=== PATIENT | female | born 1985 | race Caucasian/White ===

== ENCOUNTER 2016-11-04 16:18 | Outpatient (CLI) ==
[2015-06-10 14:36] VITALS: BMI 21.6
[2016-11-04 16:38] LABS: BASOPHILS % (AUTO) 0.3 % (0.0-3.0); EOSINOPHILS # (AUTO) 0.2 K/ul (0.0-0.7); EOSINOPHILS % (AUTO) 3.3 % (0.0-7.0); HEMATOCRIT 39.3 % (37.0-47.0); IMMATURE GRANULOCYTE % (AUTO) 0.3 % (0.0-5.0); LYMPHOCYTES % (AUTO) 33.5 (10.0-50.0); MEAN CORPUSCULAR HEMOGLOBIN 30.6 pg (27.0-31.0); MEAN CORPUSCULAR HGB CONC 33.1 (31.8-35.4); MEAN CORPUSCULAR VOLUME 92.5 fl (81.0-99.0); MONOCYTES # (AUTO) 0.4 K/uL (0.4-2.0); MONOCYTES % (AUTO) 6.1 (0-10); NEUTROPHILS # (AUTO) 3.4 K/ul (2.0-6.9); NEUTROPHILS % (AUTO) 56.5; PLATELET COUNT 268 10^3/uL (140-440); RED BLOOD COUNT 4.25 10^6/ul (4.20-5.40); WHITE BLOOD COUNT 6.06 K/ul (4.6-10.2)
[2016-11-04 17:15] LABS: ALBUMIN 3.5 g/dL (3.4-5.0); ALBUMIN/GLOBULIN RATIO 0.97; BILIRUBIN,TOTAL 0.2 mg/dL (0.00-1.20); BUN/CREATININE RATIO 20.73; CALCIUM 9.4 mg/dL (8.2-10.2); CHOL/HDL RATIO 3.4 (4.5-5.5); CREATININE 0.82 mg/dL (0.60-1.30); TOTAL PROTEIN 7.1 g/dL (6.4-8.2)
== END 2016-11-04 16:19 | disposition home or self-care (01) ==
LOC: LAB 16:18
PROVIDERS: ATTEND Internal Medicine
DX: E78.5 Hyperlipidemia, unspecified (principal); I10 Essential (primary) hypertension
CPT/HCPCS: 36415; 80053; 80061; 82306; 83036; 84443; 85025

== ENCOUNTER 2017-05-01 14:48 | Outpatient (CLI) ==
[2015-06-10 14:36] VITALS: BMI 21.6
[2017-05-01 15:05] LABS: BASOPHILS % (AUTO) 0.8 % (0.0-3.0); EOSINOPHILS # (AUTO) 0.1 K/ul (0.0-0.7); EOSINOPHILS % (AUTO) 2.8 % (0.0-7.0); HEMATOCRIT 37.6 % (37.0-47.0); HEMOGLOBIN 12.7 g/dl (12.0-16.0); IMMATURE GRANULOCYTE % (AUTO) 0.2 % (0.0-5.0); LYMPHOCYTES # (AUTO) 1.9 K/uL (0.60-3.4); LYMPHOCYTES % (AUTO) 39.1 (10.0-50.0); MEAN CORPUSCULAR HEMOGLOBIN 30.8 pg (27.0-31.0); MEAN CORPUSCULAR HGB CONC 33.8 (31.8-35.4); MEAN CORPUSCULAR VOLUME 91.3 fl (81.0-99.0); MONOCYTES # (AUTO) 0.5 K/uL (0.4-2.0); MONOCYTES % (AUTO) 9.9 (0-10); NEUTROPHILS # (AUTO) 2.3 K/ul (2.0-6.9); NEUTROPHILS % (AUTO) 47.2; PLATELET COUNT 263 10^3/uL (140-440); RED BLOOD COUNT 4.12 10^6/ul (4.20-5.40); WHITE BLOOD COUNT 4.93 K/ul (4.6-10.2)
[2017-05-01 15:45] LABS: ALBUMIN 3.5 g/dL (3.4-5.0); ALBUMIN/GLOBULIN RATIO 1.09; ANION GAP 11.9; BILIRUBIN,TOTAL 0.37 mg/dL (0.00-1.20); BUN/CREATININE RATIO 15.78; CALCIUM 9.1 mg/dL (8.2-10.2); CHOL/HDL RATIO 2.7 (4.5-5.5); CREATININE 0.76 mg/dL (0.60-1.30); POTASSIUM 3.9 mmol/L (3.5-5.10); TOTAL PROTEIN 6.7 g/dL (6.4-8.2)
== END 2017-05-01 14:49 | disposition home or self-care (01) ==
LOC: LAB 14:48
PROVIDERS: ATTEND Internal Medicine
DX: I10 Essential (primary) hypertension (principal); E78.5 Hyperlipidemia, unspecified; E55.9 Vitamin D deficiency, unspecified; I34.0 Nonrheumatic mitral (valve) insufficiency
CPT/HCPCS: 36415; 80053; 80061; 82607; 83036; 84443; 85025

== ENCOUNTER 2017-11-29 11:20 | Emergency (ER) ==
[2017-11-29 11:24] VITALS: BP 124/84; TEMP 98.3; BMI 25.0
--- NOTE | 2017-11-29 11:39 | ED.PDOC ---
General ED Provider: Dr. JEFF POPE Chief Complaint: Abscess Stated Complaint: Tender axillary lymph node Time Seen by Physician: 11:20 (SEEN WITH tala at all times photos attached ) Mode of Arrival: Walk-In Information Source: Patient Exam Limitations: No limitations Primary Care Provider: ELVIRA ALCALA Nursing and Triage Documentation Reviewed and Agree: Yes Reviewed sepsis parameters & appropriate labs ordered?: Yes (nurse present through out the exam) System Inflammatory Response Syndrome: Not Applicable Sepsis Protocol: For patient's 13 years and over: Temp is 96.8 and below OR 101 and greater Pulse >90 BPM Resp >20/minute Acutely Altered Mental Status Are patient's symptoms suggestive of a new infection, such as: -Pneumonia -Skin, Soft Tissue -Endocarditis -UTI -Bone, Joint Infection -Implantable Device -Acute Abdominal Infection -Wound Infection -Meningitis -Blood Stream Catheter Infection -Unknown System Inflammatory Response Syndrome: Not Applicable Musculoskeletal Complaint Exam - Upper Extremity Complaint/Exam Location of Pain: Reports: Left (axillary node x1 day) Mechanism of Injury: Reports: No known trauma Onset/Duration: 1 day Symptoms Are: Still present Timing: Constant Episodes Lasting: Hours Initial Severity: Mild Current Severity: Mild Character: Reports: Dull Aggravating: Reports: Movement Alleviating: Reports: None Related History: Reports: Similar episode Non-Orthopedic Risk Factors: Reports: None DVT Risk Factors: Reports: None Septic Arthritis Risk Factors: Reports: None Related Surgical History: Reports: None NV Bundle Intact Distal to Injury: No Review of Systems - Review Of Systems Constitutional: Reports: No symptoms Eyes: Reports: No symptoms Ears, Nose, Mouth, Throat: Reports: No symptoms Respiratory: Reports: No symptoms Cardiac: Reports: No symptoms GI: Reports: No symptoms : Reports: No symptoms Musculoskeletal: Reports: No symptoms Skin: Reports: No symptoms Neurological: Reports: No symptoms Endocrine: Reports: No symptoms Hematologic/Lymphatic: Reports: No symptoms All Other Systems: Reviewed and Negative Past Medical History - Past Medical History Previously Healthy: Yes Endocrine: Reports: None Cardiovascular: Reports: Other (ASD AND VSD repair at age 28) Respiratory: Reports: None Hematological: Reports: None Gastrointestinal: Reports: None Genitourinary: Reports: None Neuro/Psych: Reports: None Musculoskeletal: Reports: None Cancer: Reports: None Last Menstrual Period: 2 weeks ago Other Pertinent Past Medical History: OPEN HEART X 2, BREAST AUG, - Surgical History General Surgical History: Reports: Other (OPEN HEART X 2, BREAST AUG,) - Family History Family History: Reports: Unknown - Social History Smoking Status: Never smoker Hx Substance Use: No Alcohol Screening: None Physical Exam - Physical Exam Appearance: Well-appearing, No pain distress, Well-nourished Eyes: JAVIER, EOMI, Conjunctiva clear ENT: Ears normal, Nose normal, Oropharynx normal Respiratory: Airway patent, Breath sounds clear, Breath sounds equal, Respirations nonlabored Cardiovascular: RRR, Pulses normal, No rub, No murmur GI/: Soft, Nontender, No masses, Bowel sounds normal, No Organomegaly Musculoskeletal: Normal strength, ROM intact, No edema, No calf tenderness ( tender axillary node mobile 4mm in max size no overlaying skin issues . SEE PHOTOS) Skin: Warm, Dry, Normal color Neurological: Sensation intact, Motor intact, Reflexes intact, Cranial nerves intact, Alert, Oriented Psychiatric: Affect appropriate, Mood appropriate Critical Care Note - Critical Care Note Total Time (mins): 0 Course - Course Vital Signs: Temp Pulse Resp BP Pulse Ox 11/29/17 11:21 98.3 F 84 16 124/84 97 Departure - Departure Time of Disposition: 11:43 Disposition: HOME SELF-CARE Discharge Problem: Axillary lymphadenitis Instructions: Lymphadenopathy (ED), Adenitis (ED) Condition: Good Pt referred to PMD for follow-up: Yes IPMP verified?: Yes Additional Instructions: Please call your Family Physician as soon as possible to schedule a follow-up appointment. Allergies/Adverse Reactions: Allergies No Known Allergies Allergy (Verified 11/29/17 11:25) Home Medications: Ambulatory Orders Carvedilol [Coreg] 3.125 mg PO BIDWM 06/10/15 Desogestrel-Ethinyl Estradiol [Apri 28 Day Tablet] 1 tab PO DAILY 06/10/15 Disposition Discussed With: Patient
== END 2017-11-29 11:56 | disposition home or self-care (01) ==
LOC: ED 11:20
DX: L04.2 Acute lymphadenitis of upper limb (principal)
CPT/HCPCS: 99282

== ENCOUNTER 2018-01-21 10:07 | Outpatient (CLI) | END 2018-01-21 10:08 | disposition home or self-care (01) | LOC: LAB 10:07 | PROVIDERS: ATTEND Internal Medicine | DX: I10 Essential (primary) hypertension (principal); D64.9 Anemia, unspecified; Q21.0 Ventricular septal defect; Q21.1 Atrial septal defect; E53.8 Deficiency of other specified B group vitamins | CPT/HCPCS: 36415; 80053; 80061; 83036; 84443; 85025 ==

== ENCOUNTER 2018-04-23 10:11 | Outpatient (CLI) | END 2018-04-23 10:12 | disposition home or self-care (01) | LOC: LAB 10:11 | PROVIDERS: ATTEND Internal Medicine | DX: E78.5 Hyperlipidemia, unspecified (principal); D51.9 Vitamin B12 deficiency anemia, unspecified; M79.81 Nontraumatic hematoma of soft tissue | CPT/HCPCS: 36415; 80061; 82607; 85025 ==

== ENCOUNTER 2018-04-29 06:45 | Outpatient (CLI) ==
--- NOTE | 2018-04-29 09:23 | ECHO2D ---
Date of Exam: 04/29/18 Ordering Physician: DR. ELVIRA ALCALA Room #: OP Reason for Echo: VSD/ASD REPAIR M-Mode Normal Adult Results LV Dimensions Normal Adult Results AoV Opening excursions >1.6 >1.6 LVEDD-base- 3.5-5.8 4.3 Ao root dimensions 2.0-3.7 3.5 LVESD-base- 3.1-4.6 L. Atrium dimensions 1.9-3.8 4.7 Post. Wall thickness 0.8-1.1 1.1 IV septum (thickness) 0.7-1.2 1.2 Post. Wall excursion 0.72-1.3 NORMAL Septal motion NORMAL Systolic motion R. Ventricular cavity 1.5-2.0 NORMAL LVEF 60% 55% Paradoxical septal wall motion NORMAL 2-D : NORMAL LEFT VENTRICULAR CONTRACTILITY--THICKENED AM LEAFLET, ENLARGED LEFT ATRIAL CAVITY, NO THROMBUS, NO EFFUSION COLOR FLOW: MILD TO MODERATE MITRAL REGURGITATION M-MODE: MV: THICKENED AM LEAFLET AV: NORMAL TV: NORMAL PV: CHAMBER SIZE: ENLARGED LEFT ATRIAL CAVITY WALL MOTION: NORMAL PERICARDIUM: NORMAL INTERPRETATION: 1. THICKENED AML 2. MODERATE MITRAL REGURGITATION 3. NORMAL LEFT VENTRICULAR CONTRACTILITY 4. ENLARGED LEFT ATRIAL CAVITY MTDD
== END 2018-04-29 06:46 | disposition home or self-care (01) ==
LOC: CAR 06:45
PROVIDERS: ATTEND Internal Medicine
DX: Q21.0 Ventricular septal defect (principal); Q21.1 Atrial septal defect

== ENCOUNTER 2018-05-26 10:38 | Outpatient (CLI) ==
[2018-05-26 14:02] VITALS: BMI 25.1
== END 2018-05-26 10:52 | disposition critical access hospital (66) ==
LOC: AMBL 10:38
PROVIDERS: ATTEND Internal Medicine
DX: R07.9 Chest pain, unspecified (principal); R20.0 Anesthesia of skin; I10 Essential (primary) hypertension

== ENCOUNTER 2018-05-26 11:01 | Observation (INO) ==
--- NOTE | 2018-05-26 12:27 | DI ---
EXAM: CHEST FRONTAL AND LATERAL VIEWS HISTORY: Chest pain. COMPARISON: 01/09/2012 FINDINGS: Heart size and mediastinal contour remain within normal limits. Sternotomy wires are aga in noted. Lungs are mildly hyperinflated. No acute infiltrates are seen. No vascular congestion. T here is no consolidation, visible pleural fluid or pneumothorax. Bones reveal no acute fracture. IMPRESSION: No acute cardiopulmonary process.
--- NOTE | 2018-05-26 12:46 | ED.PDOC ---
General ED Provider: Dr. JEFF POPE Chief Complaint: Chest Pain Stated Complaint: chest pain Time Seen by Physician: 11:00 (seen with rn at all times chest carrie at work while at rest) Mode of Arrival: Ambulance Information Source: Patient, EMT Exam Limitations: No limitations Primary Care Provider: ELVIRA ALCALA Nursing and Triage Documentation Reviewed and Agree: Yes Does patient meet sepsis criteria?: No If yes, has appropriate treatment been initiated?: No System Inflammatory Response Syndrome: Not Applicable Sepsis Protocol: For patient's 13 years and over: Temp is 96.8 and below OR 101 and greater Pulse >90 BPM Resp >20/minute Acutely Altered Mental Status Are patient's symptoms suggestive of a new infection, such as: -Pneumonia -Skin, Soft Tissue -Endocarditis -UTI -Bone, Joint Infection -Implantable Device -Acute Abdominal Infection -Wound Infection -Meningitis -Blood Stream Catheter Infection -Unknown Cardiovascular Complaint Exam - Chest Pain Complaint/Exam Onset: Gradual Duration: today Symptoms Are: Resolved Timing: Intermittent Length of Chest Pain Episodes: 10 min Initial Severity: Mild Current Severity: None Location: Reports: Midsternal Pain Radiates: Reports: None Character: Reports: Dull Aggravating: Reports: None Alleviating: Reports: None Associated Signs and Symptoms: Reports: Cough. Denies: Diaphoresis, Nausea, Vomiting, Fever, Palpitations, Hemoptysis, Back pain, Abdominal pain, Dizziness , Short of air, Calf pain, Calf swelling Related History: Reports: Similar episode Related Surgical History: Reports: None History of Healthcare-Acquired Pneumonia: Reports: No AMI/ACS Risk Factors: Reports: None Pulmonary Embolism Risk Factors: Reports: None Prior Care for this Complaint: Yes Recent Stress Test: No Recent Echo/LV Function: No JVD Present: No Subcutaneous Emphysema Present: No Diminshed Breath Sounds: No Reproducible Chest Wall Pain: No Bilateral Pulses Present: Yes Unequal Pulses Noted: No If Risk Factors for AMI/ACS Consider: EKG, Cardiac Enzymes Differential Diagnoses: Stable Angina, Lower Resp. Infection Review of Systems - Review Of Systems Constitutional: Reports: No symptoms Eyes: Reports: No symptoms Ears, Nose, Mouth, Throat: Reports: No symptoms Respiratory: Reports: Cough Cardiac: Reports: Chest pain GI: Reports: No symptoms : Reports: No symptoms Musculoskeletal: Reports: No symptoms Skin: Reports: No symptoms Neurological: Reports: No symptoms Endocrine: Reports: No symptoms Hematologic/Lymphatic: Reports: No symptoms All Other Systems: Reviewed and Negative Past Medical History - Past Medical History Previously Healthy: Yes Endocrine: Reports: None Cardiovascular: Reports: Other (ASD AND VSD repair at age 28) Respiratory: Reports: None Hematological: Reports: None Gastrointestinal: Reports: None Genitourinary: Reports: None Neuro/Psych: Reports: None Musculoskeletal: Reports: None Cancer: Reports: None Last Menstrual Period: last week Other Pertinent Past Medical History: OPEN HEART X 2, BREAST AUG, - Surgical History General Surgical History: Reports: Other (OPEN HEART X 2, BREAST AUG,) - Family History Family History: Reports: Unknown - Social History Smoking Status: Never smoker Hx Substance Use: No Alcohol Screening: None Physical Exam - Physical Exam Appearance: Well-appearing, No pain distress, Well-nourished Eyes: JAVIER, EOMI, Conjunctiva clear ENT: Ears normal, Nose normal, Oropharynx normal Respiratory: Airway patent, Breath sounds clear, Breath sounds equal, Respirations nonlabored Cardiovascular: RRR, Pulses normal, No rub, No murmur GI/: Soft, Nontender, No masses, Bowel sounds normal, No Organomegaly Musculoskeletal: Normal strength, ROM intact, No edema, No calf tenderness Skin: Warm, Dry, Normal color Neurological: Sensation intact, Motor intact, Reflexes intact, Cranial nerves intact, Alert, Oriented Psychiatric: Affect appropriate, Mood appropriate Interpretation - Radiology Interpretation Radiology Interpretation By: Radiologist Radiology Results: No acute changes Physician Notification - Case Discussed Physician Notified: pmd Time of Notification: 12:46 Admit To: Inpatient Critical Care Note - Critical Care Note Total Time (mins): 0 Course - Course Hematology/Chemistry: 05/26/18 11:30 05/26/18 11:30 Orders, Labs, Meds: Lab Review 05/26/18 05/26/18 05/26/18 11:30 11:30 11:30 WBC 7.07 RBC 4.26 Hgb 13.1 Hct 39.1 MCV 91.8 MCH 30.8 MCHC 33.5 RDW Coeff of Perla 12.2 Plt Count 248 Immature Gran % (Auto) 0.3 Neut % (Auto) 61.8 Lymph % (Auto) 29.4 Mcpherson % (Auto) 6.5 Eos % (Auto) 1.4 Baso % (Auto) 0.6 Immature Gran # (Auto) 0.0 Neut # (Auto) 4.4 Lymph # (Auto) 2.1 Mcpherson # (Auto) 0.5 Eos # (Auto) 0.1 Baso # (Auto) 0.0 PT 9.5 INR 0.95 APTT 25.4 Sodium 138 Potassium 4.4 Chloride 107 Carbon Dioxide 24 Anion Gap 11.4 BUN 10 Creatinine 0.69 Estimated GFR (MDRD) 97.00 BUN/Creatinine Ratio 14.49 Glucose 90 Calcium 8.9 Total Bilirubin 0.6 AST 12 L ALT 10 L Alkaline Phosphatase 54 Total Creatine Kinase 41 Troponin I < 0.0100 Total Protein 6.8 Albumin 3.4 Globulin 3.4 Albumin/Globulin Ratio 1.00 Serum , Qual 05/26/18 11:35 WBC RBC Hgb Hct MCV MCH MCHC RDW Coeff of Perla Plt Count Immature Gran % (Auto) Neut % (Auto) Lymph % (Auto) Mcpherson % (Auto) Eos % (Auto) Baso % (Auto) Immature Gran # (Auto) Neut # (Auto) Lymph # (Auto) Mcpherson # (Auto) Eos # (Auto) Baso # (Auto) PT INR APTT Sodium Potassium Chloride Carbon Dioxide Anion Gap BUN Creatinine Estimated GFR (MDRD) BUN/Creatinine Ratio Glucose Calcium Total Bilirubin AST ALT Alkaline Phosphatase Total Creatine Kinase Troponin I Total Protein Albumin Globulin Albumin/Globulin Ratio Serum , Qual Negative Orders Category Date Time Status EKG-(ED ONLY) Stat CARDIO 05/26/18 11:24 Completed CBC W/ AUTO DIFF Stat LAB 05/26/18 11:30 Completed COMPREHENSIVE METABOLIC PANEL Stat LAB 05/26/18 11:30 Completed CREATINE KINASE Stat LAB 05/26/18 11:30 Completed PARTIAL THROMBOPLASTIN TIME Stat LAB 05/26/18 11:30 Completed PT WITH INR Stat LAB 05/26/18 11:30 Completed SERUM Stat LAB 05/26/18 11:35 Completed TROPONIN I Stat LAB 05/26/18 11:30 Completed CHEST, 2 VIEWS PA & LAT Stat RADS 05/26/18 11:24 Completed Vital Signs: Temp Pulse Resp BP Pulse Ox 05/26/18 11:02 98.6 F 69 18 131/78 100 IMELDA Risk Score IMELDA Risk Score: Risk Score Odds of by 30D 0 0.1 (0.1-0.2) 1 0.3 (0.2-0.3) 2 0.4 (0.3-0.5) 3 0.7 (0.6-0.9) 4 1.2 (1.0-1.5) 5 2.2 (1.9-2.6) 6 3.0 (2.5-3.6) 7 4.8 (3.8-6.1) Departure - Departure Time of Disposition: 12:46 Disposition: ADMITTED INPATIENT Discharge Problem: Chest pain Instructions: Angina (ED) Condition: Good Pt referred to PMD for follow-up: Yes IPMP verified?: No Additional Instructions: Please call your Family Physician as soon as possible to schedule a follow-up appointment. Allergies/Adverse Reactions: Allergies No Known Allergies Allergy (Verified 05/26/18 11:09) Home Medications: Ambulatory Orders Carvedilol [Coreg] 3.125 mg PO BIDWM 06/10/15 Desogestrel-Ethinyl Estradiol [Apri 28 Day Tablet] 1 tab PO DAILY 06/10/15 Disposition Discussed With: Patient
[2018-05-26] MEDS: SODIUM CHLORIDE 1,000 ML IV SCH ×2 (13:24→20:27)
[2018-05-26 14:02] VITALS: BMI 25.1
[2018-05-26] MEDS ORDERED: DECADRON 4 MG/ML SDV IM STA (14:25)
[2018-05-26] MEDS: TORADOL IVP SCH ×2 (15:00→20:25)
[2018-05-26] MEDS ORDERED: COREG PO SCH ×2 (17:30)
[2018-05-27] MEDS: TORADOL IVP SCH (05:12)
--- NOTE | 2018-05-27 08:50 | PN ---
DATE OF SERVICE: 05/26/18 SUBJECTIVE: 34-year-old white female hospitalized with chest pain. Chest pain was fairly atypical, inframammary on anterior axillary line, localized, lasting for 15 to 20 minutes. The patient was at work. She was brought to the emergency room. EKG shows sinus rhythm, LVH changes. Cardiac markers are negative. The patient has history of AST, VSD repair, has done well. The patient has done well. The patient had recent echocardiogram which was practically unremarkable except for mildly hypokinetic septum. The patient will under stress echo in the morning. She will be monitored. She will have serial cardiac markers, telemetry. The patient had pain which has subsequently subsided. The patient will be given Toradol p.r.n. as needed for pain. CONDITION: Stable. TIME SPENT: More than 30 minutes. Plan and coordination of the patient's care discussed in the presence of nurse. KIRILL
[2018-05-27] MEDS ORDERED: DESOGESTREL ETHINYL ESTRADIOL PO SCH (09:00)
[2018-05-27] MEDS: SODIUM CHLORIDE 1,000 ML IV SCH (09:17)
[2018-05-27 09:44] VITALS: BP 113/74; TEMP 97.8
--- NOTE | 2018-05-28 10:03 | STRESSECHO ---
Date of Test: 05/27/18 Ordering Physician: DR. 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[employer] Reason for Exam: CHEST PAIN, H/O ASD REPAIR Height: 66" Weight: 155 LBS Current Medications: CARVEDILOL Resting EKG: ATRIAL RHYTHM Target Heart Rate: 158 S-T SEGMENT STAGE MPH/GRADE HEART RATE BPM BLOOD PRESSURE MMHG RHYTHM +/- ELEVATION DEPRESSION SYMPTOMS,COMMENTS AT REST 70 112/78 SR X NONE 1 1.7/10% 110 122/76 SR X NONE 2 2.5/12% 128 128/70 SR X NONE 3 3.4/14% 4 4.2/16% 5 5.0/18% Immediately After 150 SR X FATIGUE Minutes Post Exercise 5:00 86 112/70 SR X FATIGUE Minutes Post Exercise DURATION OF EXERCISE: 8:01 MAXIMUM HEART RATE REACHED: 150 BPM REASON FOR TERMINATION: FATIGUE 97% OXYGEN SATURATION WITH EXERCISE ON ROOM AIR INTERPRETATION: 1. NO EVIDENCE OF ISCHEMIA BY ST-T WAVE 2. NO CHEST PAIN OR CHEST DISCOMFORT 3. BLOOD PRESSURE RESPONSE: NORMAL AT REST AND WITH EXERCISE 4. NO ARRHYTHMIAS MILDLY HYPOKINETIC SEPTUM AT REST AND NORMAL LEFT VENTRICULAR CONTRACTILITY WITH EXERCISE MTDD
--- NOTE | 2018-05-28 10:20 | ECHOSTRESS ---
Date of Exam: 05/27/18 Ordering Physician: DR. ELVIRA ALCALA Reason for Echo: CHEST PAIN, H/O ASD REPAIR M-Mode Normal Adult Results LV Dimensions Normal Adult Results AoV Opening excursions >1.6 LVEDD-base- 3.5-5.8 Ao root dimensions 2.0-3.7 LVESD-base- 3.1-4.6 L. Atrium dimensions 1.9-3.8 Post. Wall thickness 0.8-1.1 IV septum (thickness) 0.7-1.2 Post. Wall excursion 0.72-1.3 Septal motion Systolic motion R. Ventricular cavity 1.5-2.0 LVEF 60% Paradoxical septal wall motion 2-D: MILDLY HYPOKINETIC SEPTUM AT REST--POST EXERCISE NORMAL LEFT VENTRICULAR CONTRACTILITY M-MODE: MV: AV: TV: PV: CHAMBER SIZE: WALL MOTION: MILDLY HYPOKINETIC SEPTUM AT REST--POST EXERCISE NORMAL LEFT VENTRICULAR CONTRACTILITY PERICARDIUM: INTERPRETATION: 1. MILDLY HYPOKINETIC SEPTUM AT REST--POST EXERCISE NORMAL LEFT VENTRICULAR CONTRACTILITY MTDD
--- NOTE | 2018-05-28 13:08 | PN ---
DATE OF SERVICE: 05/27/18 SUBJECTIVE: This 33-year-old white female was hospitalized with chest pain. REVIEW OF SYSTEMS: CONSTITUTIONAL: No night sweats. No fatigue, malaise, lethargy. No fever or chills. HEENT: Eyes: No visual changes. No eye pain. No eye discharge. ENT: No runny nose. No epistaxis. No sinus pain. No sore throat. No odynophagia. No congestion. RESPIRATORY: No cough, no congestion. No hemoptysis. No shortness of breath. CARDIOVASCULAR: No angina symptoms. No CHF symptoms. No atypical chest pain for CAD. No palpitations. No orthopnea. GASTROINTESTINAL: No abdominal pain. No nausea or vomiting. No diarrhea or constipation. No hematemesis. No hematochezia. GENITOURINARY: No urgency. No frequency. No dysuria. No hematuria. No obstructive symptoms. No discharge. No pain. No significant abnormal bleeding. MUSCULOSKELETAL: No musculoskeletal pain; no joint swelling. NEUROLOGICAL: No headache. No neck pain. No syncope. No seizures. No dizziness. PSYCHIATRIC: Not anxious. No depression. No suicidal thoughts. No homicidal thoughts. SKIN: No rash. No lesions. No wounds. ENDOCRINE: No unexplained weight loss. No weight gain. HEMATOLOGIC/LYMPHATIC: No anemia. No purpura. No petechiae. No prolonged or excessive bleeding. No palpable lymph nodes. PHYSICAL EXAMINATION: HEENT: Head normocephalic, atraumatic. Eyes: Extraocular muscles are intact. Pupils are equal, round and reactive to light and accommodation. Ears: No lesions. Nose appeared normal. Throat: No exudate or erythema. NECK: Supple. No JVD, no carotid bruit. No lymphadenopathy or thyromegaly. LUNGS: Clear to auscultation. Percussion note normal. Chest symmetrical. HEART: S1, S2, no S3. No murmurs. No cyanosis or clubbing. No ascites. Pulses: Dorsalis pedis and posterior tibial pulses +1 to +2 both sides. ABDOMEN: Soft. Nontender. Bowel sounds active. No CVA tenderness. No mass felt. EXTREMITIES: No edema. Full range of motion of all extremities, equal. NEUROLOGIC: No focal deficit. Cranial nerves II through XII are grossly intact. No headache, no double vision or headache. SKIN: Not dry. Intact. Turgor - normal. LYMPHATIC: No palpable lymph nodes/no lymphedema. MUSCULOSKELETAL: Normal joints with no swelling. Muscle tone is normal. LABS: Hemoglobin 12, hematocrit 35, WBC 5,800, normal differential. Creatinine 0.6, BUN 11. Cardiac markers negative. The patient was seen and examined with nurse practitioner. Will do stress echo, if normal will discharge her home. The patient's EKG shows LVH, sinus rhythm, no ST-T wave changes. CONDITION: Stable. The patient was seen and examined with the nurse practitioner. TIME SPENT: More than 30 minutes. Plan and coordination of the patient's care discussed in the presence of nurse. KIRILL
--- NOTE | 2018-05-28 13:09 | PN ---
CODING FOR BILLING 05/26/18 LEVEL 5 05/27/18 DISCHARGE MTDD
--- NOTE | 2018-05-28 15:36 | HP ---
DATE OF SERVICE: 05/26/18 REASON FOR HOSPITALIZATION/HISTORY OF PRESENT ILLNESS: 33 year old female with a history of ASD repair who started having chest pain under the left breast radiating down the left arm at work yesterday while at rest. She stated that she did break out in a sweat but did not necessarily feel short of breath. PAST MEDICAL HISTORY: Hypertension Dyslipidemia, she refuses a Statin Mitral regurg History of ASD VSD status post repair Vitamin D deficiency Anemia B12 deficiency PAST SURGICAL HISTORY: VSD/ACD repair in 2010 in [place] REVIEW OF SYSTEMS: CONSTITUTIONAL: No night sweats. Fatigue. No fever or chills. HEENT: Eyes: No visual changes. No eye pain. No eye discharge. ENT: No runny nose. No epistaxis. No sinus pain. No sore throat. No odynophagia. No ear pain. No congestion. RESPIRATORY: No cough, no congestion. No hemoptysis. No shortness of breath. CARDIOVASCULAR: No angina symptoms. No CHF symptoms. No atypical chest pain for CAD. No palpitations. No PND. No orthopnea. Chest pain. GASTROINTESTINAL: No abdominal pain. No nausea or vomiting. No diarrhea or constipation. No hematemesis. No hematochezia. GENITOURINARY: No urgency. No frequency. No dysuria. No hematuria. No obstructive symptoms. No discharge. No pain. No significant abnormal bleeding. MUSCULOSKELETAL: No musculoskeletal pain. No joint swelling. No arthritis. NEUROLOGICAL: No headache. No neck pain. No syncope. No seizures. No dizziness. PSYCHIATRIC: Not anxious. No depression. No suicidal thoughts. No homicidal thoughts. SKIN: No rash. No lesions. No wounds. ENDOCRINE: No unexplained weight loss. No weight gain. HEMATOLOGIC/LYMPHATIC: No anemia. No purpura. No petechiae. No prolonged or excessive bleeding. No palpable lymph nodes. PERSONAL/FAMILY/SOCIAL HISTORY: None unknown. The patient lives with her . She is a nonsmoker, no alcohol or illicit drug use. MEDICATIONS: Coreg 3.125mg PO daily Apri 28 day tablet one tablet PO daily ALLERGIES: No known allergies PHYSICAL EXAMINATION: VITAL SIGNS: Temperature 98.6, heart rate 69, respiratory rate 18, blood pressure 131/78 and pulse ox 100%. HEENT: Head normocephalic, atraumatic. Eyes: Extraocular muscles are intact. Pupils are equal, round and reactive to light and accommodation. Ears: No lesions. Nose appeared normal. Throat: No exudate or erythema. NECK: Supple. No JVD, no carotid bruit. No lymphadenopathy or thyromegaly. LUNGS: Clear to auscultation. Percussion note normal. Chest symmetrical. HEART: S1, S2, no S3. No murmurs. No cyanosis or clubbing. No ascites. Pulses: Dorsalis pedis and posterior tibial pulses +1 to +2 bilaterally. ABDOMEN: Soft. Nontender. Bowel sounds active. No CVA tenderness. No mass felt. EXTREMITIES: No edema. Full range of motion of all extremities, equal. NEUROLOGIC: No focal deficit. Cranial nerves II through XII are grossly intact. No headache, no double vision or headache. SKIN: Not dry. Intact. Turgor - normal. LYMPHATIC: No palpable lymph nodes/no lymphedema. MUSCULOSKELETAL: Normal joints with no swelling. Muscle tone is normal. LABS: WBC 7.07, hgb 13.1, hct 39.1, plt count 248, sodium 138, potassium 4.4, BUN 10, creatinine 0.69, Glucose 90. PT 9.5, INR 0.95, Troponin less than 0.01, total protein 6.8. Chest x-ray was normal. Cholesterol was 214, Triglyceride 82, LDL 139, HDL 59, T4 0.89, TSH 0.352 ASSESSMENT: 1. Chest pain, very likely atypical 2. History of ASD/VSD status post repair 3. Dyslipidemia, refuses treatment 4. History of hypertension PLAN: 1. Will admit 2. Routine telemetry orders 3. CBC and CMP daily 4. Echo with stress echo in the morning 5. Continue all home medications 6. Toradol 30mg IV Q 8 hours as scheduled 7. Regular diet 8. The patient is a full code Will follow closely. TIME SPENT: More than 70 minutes. MTDD
--- NOTE | 2018-05-31 10:16 | PN ---
DATE OF SERVICE: 05/27/18 SUBJECTIVE: The patient is examined. She states she is not experiencing any chest pain at the moment. She is scheduled for stress echo with Dr. Leos today. She is not short of breath. All of her enzymes have been normal. REVIEW OF SYSTEMS: CONSTITUTIONAL: No night sweats. No fatigue, malaise, lethargy. No fever or chills. HEENT: Eyes: No visual changes. No eye pain. No eye discharge. ENT: No runny nose. No epistaxis. No sinus pain. No sore throat. No odynophagia. No congestion. RESPIRATORY: No cough, no congestion. No hemoptysis. No shortness of breath. CARDIOVASCULAR: No angina symptoms. No CHF symptoms. No atypical chest pain for CAD. No palpitations. No orthopnea. GASTROINTESTINAL: No abdominal pain. No nausea or vomiting. No diarrhea or constipation. No hematemesis. No hematochezia. GENITOURINARY: No urgency. No frequency. No dysuria. No hematuria. No obstructive symptoms. No discharge. No pain. No significant abnormal bleeding. MUSCULOSKELETAL: No musculoskeletal pain; no joint swelling. NEUROLOGICAL: No headache. No neck pain. No syncope. No seizures. No dizziness. PSYCHIATRIC: Not anxious. No depression. No suicidal thoughts. No homicidal thoughts. SKIN: No rash. No lesions. No wounds. ENDOCRINE: No unexplained weight loss. No weight gain. HEMATOLOGIC/LYMPHATIC: No anemia. No purpura. No petechiae. No prolonged or excessive bleeding. No palpable lymph nodes. PHYSICAL EXAMINATION: HEENT: Head normocephalic, atraumatic. Eyes: Extraocular muscles are intact. Pupils are equal, round and reactive to light and accommodation. Ears: No lesions. Nose appeared normal. Throat: No exudate or erythema. NECK: Supple. No JVD, no carotid bruit. No lymphadenopathy or thyromegaly. LUNGS: Clear to auscultation. Percussion note normal. Chest symmetrical. HEART: S1, S2, no S3. Grade II/ systolic murmur. No cyanosis or clubbing. No ascites. Pulses: Dorsalis pedis and posterior tibial pulses +1 to +2 both sides. ABDOMEN: Soft. Nontender. Bowel sounds active. No CVA tenderness. No mass felt. EXTREMITIES: No edema. Full range of motion of all extremities, equal. NEUROLOGIC: No focal deficit. Cranial nerves II through XII are grossly intact. No headache, no double vision or headache. SKIN: Not dry. Intact. Turgor - normal. LYMPHATIC: No palpable lymph nodes/no lymphedema. MUSCULOSKELETAL: Normal joints with no swelling. Muscle tone is normal. LABS: Normal. ASSESSMENT: 1. CHEST PAIN, LIKELY ATYPICAL 2. HISTORY OF ASD/VSD REPAIR ABOUT 5 YEARS AGO IN [facility] 3. DYSLIPIDEMIA, PATIENT REFUSES TREATMENT PLAN: 1. Will do T4, TSH and lipids today. 2. The patient is to have echo and stress echo with Dr. Leos. 3. Continue all home medications. TIME SPENT: More than 30 minutes. Plan and coordination of the patient's care discussed in the presence of nurse. KIRILL
--- NOTE | 2018-07-19 11:04 | DS ---
DATE OF SERVICE: 05/27/18 FINAL DIAGNOSIS: 1. CHEST PAIN, ATYPICAL 2. HISTORY OF ASD/VSD, STATUS POST REPAIR IN 2010, IN [place] 3. DYSLIPIDEMIA FOR WHICH PATIENT REFUSES TREATMENT 4. HISTORY OF HYPERTENSION DISCHARGE INSTRUCTIONS: Followup appointment - to see Dr. Leos/Sierra Poon APRN on 06/01/18 at 9:45 a.m. MEDICATIONS AT DISCHARGE: Carvedilol (Coreg) 3.125 mg p.o. daily with meal Estradiol one tab p.o. daily NEW PRESCRIPTIONS: None DIET INSTRUCTIONS: Heart Healthy ACTIVITY: Get plenty of rest at home. Increase your activity level according to your toleration. SMOKING: N/A DISEASE SPECIFIC EDUCATION: Medications Activity Diet and exercise Stress management techniques Follow up HOSPITAL COURSE: This is a 33-year-old white female who presented to the emergency room after having a weak spell at work. While at rest she was experiencing chest pain under her left breast radiating down her left arm. Due to her cardiac history she became nervous. She did break out in a sweat but was not short of breath, just felt very weak. She was subsequently admitted under observation. She underwent an echo and stress echo by Dr. Leos, which showed no evidence of ischemia by ST-T wave. She experienced no chest pain or chest discomfort. All of her cardiac enzymes were negative. Chest x-ray was normal. UA was normal. Her echo did reveal a mildly hypokinetic septum at rest, normal left ventricular contractility with exercise. Her blood pressure remained normal. She did not experience any chest pain or weakness while in the hospital. We discussed this is likely atypical chest pain for which she is having some increased anxiety with stress at work however she does have a history of dyslipidemia and she has been strongly recommended to begin statin therapy although she continues to refuse. She was given Protonix 40 mg p.o. b.i.d. while in the hospital and she has declined any depression or antianxiety medication at this time. She will be discharged home in stable condition and allowed to return to work due to her negative cardiac workup. She will follow up with us in the office next week. Stress management techniques have been discussed with her in detail. TIME SPENT: More than 60 minutes. KIRILL
== END 2018-05-27 12:31 | disposition home or self-care (01) ==
LOC: ED 11:01 → MEDSURG B 13:09 → INTOOBSV 13:09
PROVIDERS: ADMIT Internal Medicine; ATTEND Internal Medicine
DX: E78.5 Hyperlipidemia, unspecified (principal); I10 Essential (primary) hypertension
CPT/HCPCS: 36415; 80053; 80061; 82550; 84439; 84443; 84484; 84703; 85025; 85610; 85730; 93005; 93010; 99284

== ENCOUNTER 2018-08-18 11:28 | Outpatient (POV) | END 2018-08-18 17:00 | LOC: OUTPT 11:28 | PROVIDERS: ATTEND Otolaryngology | DX: H69.80 Other specified disorders of Eustachian tube, unspecified ear (principal) | CPT/HCPCS: 92557; 92567 ==

== ENCOUNTER 2018-09-01 10:03 | Outpatient (CLI) | END 2018-09-01 10:04 | disposition home or self-care (01) | LOC: LAB 10:03 | PROVIDERS: ATTEND Internal Medicine | DX: E78.5 Hyperlipidemia, unspecified (principal); I10 Essential (primary) hypertension | CPT/HCPCS: 36415; 80053; 80061; 83036; 84439; 84443; 85025 ==

== ENCOUNTER 2018-11-25 15:40 | Emergency (ER) ==
[2018-11-25 15:44] VITALS: BP 144/87; TEMP 98.2; BMI 26.6
--- NOTE | 2018-11-25 16:45 | ED.PDOC ---
General ED Provider: Dr. QUENTIN JERONIMO Chief Complaint: Knee Pain/Injury Stated Complaint: patient states that she was standing at school for approx one hour and then she heard a pop. states she didn't think much about it until she went to walk. states her right knee wouldn't "work right." states having problems bending it. states she is afraid to put weight on it but it doesn't hurt with weight. states pain worsened around 1515. Time Seen by Physician: 15:50 Mode of Arrival: Wheelchair Information Source: Patient Exam Limitations: No limitations Primary Care Provider: ELVIRA ALCALA Nursing and Triage Documentation Reviewed and Agree: Yes Does patient meet sepsis criteria?: No System Inflammatory Response Syndrome: Not Applicable Sepsis Protocol: For patient's 13 years and over: Temp is 96.8 and below OR 101 and greater Pulse >90 BPM Resp >20/minute Acutely Altered Mental Status Are patient's symptoms suggestive of a new infection, such as: -Pneumonia -Skin, Soft Tissue -Endocarditis -UTI -Bone, Joint Infection -Implantable Device -Acute Abdominal Infection -Wound Infection -Meningitis -Blood Stream Catheter Infection -Unknown Musculoskeletal Complaint Exam - Knee Pain Complaint/Exam Mechanism of Injury: Reports: No known trauma Onset/Duration: earlier today Symptoms Are: Still present Onset of Pain: Reports: Immediate Initial Severity: Moderate Current Severity: Mild Location: Reports: Discrete Character: Reports: Aching, Stiffness Alleviating: Reports: Rest, Position Aggravating: Reports: Movement Associated Signs and Symptoms: Reports: Swelling, Redness Able to Bear Weight: Yes Septic Arthritis Risk Factors: Reports: None Gout Risk Factors: Reports: None Related Surgical History: Denies: Right Knee, Left Knee Knee Findings: Present: Swelling, Limited range of motion. Absent: Ecchymosis, Laceration, Erythema, Warmth Tenderness: Present: Pre-patellar, Joint Marilynn Test Positive: No Helena Test Positive: No Limited Range of Motion: Present: Passive Differential Diagnoses: Patellofemoral Syndrome, Strain Review of Systems - Review Of Systems Constitutional: Reports: No symptoms Eyes: Reports: No symptoms Ears, Nose, Mouth, Throat: Reports: No symptoms Respiratory: Reports: No symptoms Cardiac: Reports: No symptoms GI: Reports: No symptoms : Reports: No symptoms Musculoskeletal: Reports: No symptoms, Joint pain Skin: Reports: No symptoms Neurological: Reports: No symptoms Endocrine: Reports: No symptoms Hematologic/Lymphatic: Reports: No symptoms All Other Systems: Reviewed and Negative Past Medical History - Past Medical History Previously Healthy: Yes Endocrine: Reports: None Cardiovascular: Reports: Other (ASD AND VSD repair at age 28) Respiratory: Reports: None Hematological: Reports: None Gastrointestinal: Reports: None Genitourinary: Reports: None Neuro/Psych: Reports: None Musculoskeletal: Reports: None Cancer: Reports: None Last Menstrual Period: 2 weeks ago Other Pertinent Past Medical History: OPEN HEART X 2, BREAST AUG, - Surgical History General Surgical History: Reports: Other (OPEN HEART X 2, BREAST AUG,) - Family History Family History: Reports: Unknown - Social History Smoking Status: Former smoker Hx Substance Use: No Alcohol Screening: None Physical Exam - Physical Exam Appearance: Well-appearing, No pain distress, Well-nourished Ill-appearing: None Pain Distress: Mild Eyes: JAVIER, EOMI, Conjunctiva clear ENT: Ears normal, Nose normal, Oropharynx normal Respiratory: Airway patent, Breath sounds clear, Breath sounds equal, Respirations nonlabored Cardiovascular: RRR, Pulses normal, No rub, No murmur GI/: Soft, Nontender, No masses, Bowel sounds normal, No Organomegaly Musculoskeletal: Normal strength, ROM intact (See knee exam), No edema, No calf tenderness Skin: Warm, Dry, Normal color Neurological: Sensation intact, Motor intact, Reflexes intact, Cranial nerves intact, Alert, Oriented Psychiatric: Affect appropriate, Mood appropriate Critical Care Note - Critical Care Note Total Time (mins): 0 Course - Course Orders, Labs, Meds: Orders Category Date Time Status ED CRUTCHES .ONCE EMERGENCY 11/25/18 18:29 Active Knee immobilizer [ED SPLINT APPLICATION] .ONCE EMERGENCY 11/25/18 18:29 Active Ketorolac Tromethamine [Toradol] MEDS 11/25/18 17:39 Discontinued 30 mg IM ONCE STA KNEE, RIGHT 4 VIEWS Stat RADS 11/25/18 16:44 Completed Medications Discontinued Medications Generic Name Dose Route Start Last Admin Trade Name Freq PRN Reason Stop Dose Admin Ketorolac Tromethamine 30 mg 11/25/18 17:39 11/25/18 18:01 Toradol IM 11/25/18 17:40 30 mg ONCE STA Administration Vital Signs: Temp Pulse Resp BP Pulse Ox 11/25/18 15:40 98.2 F 82 20 144/87 H 99 Departure - Departure Time of Disposition: 18:20 Disposition: HOME SELF-CARE Discharge Problem: Strain of right knee Instructions: Knee Pain (ED) Condition: Good Pt referred to PMD for follow-up: Yes (1-2 weeks) IPMP verified?: No Additional Instructions: ICE Elevate Ibuprofen 200mg take 3 tabs every 6 hrs for pain as needed if unable to obtain toradol-do not take both of them Crutches Knee Immobilizer Follow up Dr Alcala for ortho referral Prescriptions: Ketorolac Tromethamine [Toradol] 10 mg PO Q6H PRN #20 tablet PRN Reason: knee pain Allergies/Adverse Reactions: Allergies No Known Allergies Allergy (Verified 11/25/18 15:44) Home Medications: Ambulatory Orders Carvedilol 3.125 mg PO DAILY 11/25/18 Desogestrel-Ethinyl Estradiol [Rahul 28 Day Tablet] 1 each PO DAILY 11/25/18 Ketorolac Tromethamine [Toradol] 10 mg PO Q6H PRN #20 tablet 11/25/18 Disposition Discussed With: Patient
[2018-11-25] MEDS ORDERED: TORADOL IM STA (17:39)
--- NOTE | 2018-11-26 07:14 | DI ---
EXAM: RIGHT KNEE. HISTORY: Medial knee pain. FINDINGS: Right knee four view. Articular cartilage width is normal. There is no fracture or joint effusion. Bone density and soft tissues are within normal limits. IMPRESSION: Within normal limits.
== END 2018-11-25 18:39 | disposition home or self-care (01) ==
LOC: ED 15:40
DX: S86.911A Strain of unspecified muscle(s) and tendon(s) at lower leg level, right leg, initial encounter (principal); X50.1XXA Overexertion from prolonged static or awkward postures, initial encounter
CPT/HCPCS: 96372; 99282

== ENCOUNTER 2018-12-02 14:12 | Outpatient (CLI) | END 2018-12-02 14:13 | disposition home or self-care (01) | LOC: LAB 14:12 | PROVIDERS: ATTEND Internal Medicine | DX: E78.5 Hyperlipidemia, unspecified (principal); D64.9 Anemia, unspecified; E53.8 Deficiency of other specified B group vitamins; I10 Essential (primary) hypertension | CPT/HCPCS: 36415; 80053; 80061; 82306; 82607; 84439; 84443; 85025 ==

== ENCOUNTER 2019-04-30 17:10 | Emergency (ER) ==
[2019-04-30 17:14] VITALS: BP 124/83; TEMP 98.1; BMI 25.6
[2019-04-30 17:43] LABS: URINE PREGNANCY TEST NEGATIVE (NEGATIVE)
[2019-04-30] MEDS: NORFLEX IM STA (17:45)
[2019-04-30] MEDS: TORADOL IM STA (17:47)
--- NOTE | 2019-04-30 18:21 | CT ---
EXAM: CT cervical spine. HISTORY: Neck pain. No acute injury. COMPARISON: None. TECHNIQUE: Contiguous axial images at 2 mm intervals were obtained from the base of the skull to the thoracic spine. Sagittal and coronal reformats were reviewed. No contrast was given. FINDINGS: There is straightening of the normal lordosis which may be due to positioning the CT gantr y. The vertebral heights are well maintained. There are no acute or healing fractures. There are no lytic or blastic lesions. No significant degenerative changes are seen. No disc bulges are identif ied. The soft tissues are normal. The airway is widely patent. Limited views of the lung apices are normal. There are no disc bulges, spinal canal or neural foramen narrowing IMPRESSION: No acute cervical spine abnormality.
--- NOTE | 2019-04-30 18:24 | ED.PDOC ---
General ED Provider: Dr. QUENTIN MENDEZ-ER Chief Complaint: Neck Pain Non-Injury Stated Complaint: i turned my head and my neck popped Time Seen by Physician: 17:30 Mode of Arrival: Walk-In Information Source: Patient Exam Limitations: No limitations Primary Care Provider: ELVIRA ALCALA Nursing and Triage Documentation Reviewed and Agree: Yes Does patient meet sepsis criteria?: No System Inflammatory Response Syndrome: Not Applicable Sepsis Protocol: For patient's 13 years and over: Temp is 96.8 and below OR 101 and greater Pulse >90 BPM Resp >20/minute Acutely Altered Mental Status Are patient's symptoms suggestive of a new infection, such as: -Pneumonia -Skin, Soft Tissue -Endocarditis -UTI -Bone, Joint Infection -Implantable Device -Acute Abdominal Infection -Wound Infection -Meningitis -Blood Stream Catheter Infection -Unknown Musculoskeletal Complaint Exam - Neck Pain Complaint/Exam Mechanism of Injury: Reports: No known trauma Onset/Duration: 1 hr Symptoms Are: Still present Timing: Constant Initial Severity: Mild Current Severity: Mild Location: Reports: Discrete Character: Reports: Dull, Aching, Spasmodic Aggravating: Reports: Movement Alleviating: Reports: Position Associated Signs and Symptoms: Denies: Swelling, Redness, Bruising, Fever, Nuchal rigidity, Weakness, Headache, Paresthesia Meningitis Risk Factors: Reports: None Cervical Spine Injury Risk Factors: Reports: None Related Surgical History: Reports: None Carotid Bruit Present: No Pain on Passive Flexion: Yes Positive Kernig's Sign: No ROM Limited In: Present: Flexion, Extension, Right, Left Pain Located at: posterior neck Tenderness: Present: Midline Focal Weakness: Present: None Focal Sensory Loss: Reports: None Nexus Low Risk Criteria: No post-midline CS tender Differential Diagnoses: Sprain, Strain Review of Systems - Review Of Systems Constitutional: Reports: No symptoms Eyes: Reports: No symptoms Ears, Nose, Mouth, Throat: Reports: No symptoms Respiratory: Reports: No symptoms Cardiac: Reports: No symptoms GI: Reports: No symptoms : Reports: No symptoms Musculoskeletal: Reports: Muscle pain, Neck pain Skin: Reports: No symptoms Neurological: Reports: No symptoms Endocrine: Reports: No symptoms Hematologic/Lymphatic: Reports: No symptoms All Other Systems: Reviewed and Negative Past Medical History - Past Medical History Previously Healthy: Yes Endocrine: Reports: None Cardiovascular: Reports: Other (ASD AND VSD repair at age 28) Respiratory: Reports: None Hematological: Reports: None Gastrointestinal: Reports: None Genitourinary: Reports: None Neuro/Psych: Reports: None Musculoskeletal: Reports: None Cancer: Reports: None Last Menstrual Period: now Other Pertinent Past Medical History: OPEN HEART X 2, BREAST JUN, - Surgical History General Surgical History: Reports: Other (OPEN HEART X 2, BREAST AUG,) - Family History Family History: Reports: Unknown - Social History Smoking Status: Former smoker Hx Substance Use: No Alcohol Screening: None Physical Exam - Physical Exam Appearance: Well-appearing, No pain distress, Well-nourished Pain Distress: Mild Eyes: JAVIER, EOMI, Conjunctiva clear ENT: Ears normal, Nose normal, Oropharynx normal Neck: Supple Respiratory: Airway patent, Breath sounds clear, Breath sounds equal, Respirations nonlabored Cardiovascular: RRR, Pulses normal, No rub, No murmur GI/: Soft, Nontender, No masses, Bowel sounds normal, No Organomegaly Musculoskeletal: Normal strength, ROM intact, No edema, No calf tenderness Skin: Warm, Dry, Normal color Neurological: Sensation intact, Motor intact, Reflexes intact, Cranial nerves intact, Alert, Oriented Psychiatric: Affect appropriate, Mood appropriate Interpretation - Radiology Interpretation Radiology Interpretation By: Radiologist Radiology Results: Negative Exam Interpreted: CT Scan Re-Evaluation - Re-Evaluation Time of Re-Evaluation: 18:30 Status: Improved Vital Signs Stable: Yes Pain Level: 2 Appearance: NAD Lungs: Clear Skin: Warm and Dry Neuro: Alert and Oriented X3 CV: RRR Critical Care Note - Critical Care Note Total Time (mins): 0 Course - Course Orders, Labs, Meds: Lab Review 04/30/19 17:35 Urine Test Negative Orders Category Date Time Status URINE Stat LAB 04/30/19 17:35 Completed Ketorolac Tromethamine [Toradol] MEDS 04/30/19 17:27 Discontinued 60 mg IM ONCE STA Orphenadrine Citrate [Norflex] MEDS 04/30/19 17:27 Discontinued 60 mg IM ONCE STA CT CERVICAL SPINE W/O CONTRAST Stat RADS 04/30/19 17:27 Completed Medications Discontinued Medications Generic Name Dose Route Start Last Admin Trade Name Freq PRN Reason Stop Dose Admin Ketorolac Tromethamine 60 mg 04/30/19 17:27 04/30/19 17:47 Toradol IM 04/30/19 17:28 60 mg ONCE STA Administration Orphenadrine Citrate 60 mg 04/30/19 17:27 04/30/19 17:45 Norflex IM 04/30/19 17:28 60 mg ONCE STA Administration Vital Signs: Temp Pulse Resp BP Pulse Ox 04/30/19 17:12 98.1 F 70 20 124/83 98 Departure - Departure Time of Disposition: 18:30 Disposition: HOME SELF-CARE Discharge Problem: Neck pain Instructions: Cervical Strain (ED) Condition: Good Pt referred to PMD for follow-up: Yes IPMP verified?: No Additional Instructions: use motrin and norflex for pain0--heat alt ice===f/u with pcp Allergies/Adverse Reactions: Allergies No Known Allergies Allergy (Verified 04/30/19 17:14) Home Medications: Ambulatory Orders Desogestrel-Ethinyl Estradiol [Rahul 28 Day Tablet] 1 each PO DAILY 11/25/18 Atorvastatin Calcium 20 mg PO DAILY 04/30/19 Cholecalciferol (Vitamin D3) [Vitamin D] 1,500 unit PO DAILY 04/30/19 Cyanocobalamin (Vitamin B-12) [Vitamin B12] 2,500 mcg PO DAILY 04/30/19 Turmeric 400 mg PO PRN PRN 04/30/19 Disposition Discussed With: Patient
== END 2019-04-30 18:37 | disposition home or self-care (01) ==
LOC: ED 17:10
DX: M54.2 Cervicalgia (principal)
CPT/HCPCS: 81025; 96372; 99283

== ENCOUNTER 2019-07-04 16:21 | Emergency (ER) ==
[2019-07-04 16:24] VITALS: BP 127/80; TEMP 97.9; BMI 25.0
--- NOTE | 2019-07-04 17:03 | ED.PDOC ---
General ED Provider: Dr. JEFF POPE Chief Complaint: Foot Pain/Injury Stated Complaint: trauma left 2nd toe today Time Seen by Physician: 16:30 (seen with MISS FITCH AT ALL TIMES ) Mode of Arrival: Walk-In Information Source: Patient Exam Limitations: No limitations Primary Care Provider: ELVIRA ALCALA Nursing and Triage Documentation Reviewed and Agree: Yes Does patient meet sepsis criteria?: No System Inflammatory Response Syndrome: Not Applicable Sepsis Protocol: For patient's 13 years and over: Temp is 96.8 and below OR 101 and greater Pulse >90 BPM Resp >20/minute Acutely Altered Mental Status Are patient's symptoms suggestive of a new infection, such as: -Pneumonia -Skin, Soft Tissue -Endocarditis -UTI -Bone, Joint Infection -Implantable Device -Acute Abdominal Infection -Wound Infection -Meningitis -Blood Stream Catheter Infection -Unknown Trauma/Injury Complaint Exam - Trauma Complaint/Exam Location of Pain or Injury: Reports: LLE (FOOT TOE ONLY) Onset/Duration: TODAY Symptoms Are: Still present Timing of Treatment: Immediate Initial Severity: Mild Aggravating: Reports: Movement Alleviating: Reports: None Associated Signs and Symptoms: Reports: Bruising. Denies: LOC, Confusion, Memory loss, Lethargy, Vomiting, Bleeding, Swelling, Extremity disuse, Painful respiration, Hoarseness, Dysphagia, Hemoptysis, Significant blood loss Review of Systems - Review Of Systems Constitutional: Reports: No symptoms Eyes: Reports: No symptoms Ears, Nose, Mouth, Throat: Reports: No symptoms Respiratory: Reports: No symptoms Cardiac: Reports: No symptoms GI: Reports: No symptoms : Reports: No symptoms Musculoskeletal: Reports: Other (TOE INJURY) Skin: Reports: No symptoms Neurological: Reports: No symptoms Endocrine: Reports: No symptoms Hematologic/Lymphatic: Reports: No symptoms All Other Systems: Reviewed and Negative Past Medical History - Past Medical History Previously Healthy: Yes Endocrine: Reports: None Cardiovascular: Reports: Other (ASD AND VSD repair at age 28) Respiratory: Reports: None Hematological: Reports: None Gastrointestinal: Reports: None Genitourinary: Reports: None Neuro/Psych: Reports: None Musculoskeletal: Reports: None Cancer: Reports: None Last Menstrual Period: unknown, irregular, on control Other Pertinent Past Medical History: OPEN HEART X 2, BREAST AUG, - Surgical History General Surgical History: Reports: Other (OPEN HEART X 2, BREAST AUG,) - Family History Family History: Reports: Unknown - Social History Smoking Status: Former smoker Hx Substance Use: No Alcohol Screening: None Physical Exam - Physical Exam Appearance: Well-appearing, No pain distress, Well-nourished Eyes: JAVIER, EOMI, Conjunctiva clear ENT: Ears normal, Nose normal, Oropharynx normal Respiratory: Airway patent, Breath sounds clear, Breath sounds equal, Respirations nonlabored Cardiovascular: RRR, Pulses normal, No rub, No murmur GI/: Soft, Nontender, No masses, Bowel sounds normal, No Organomegaly Musculoskeletal: Normal strength, ROM intact, No edema, No calf tenderness Skin: Warm, Dry (BRUSED LEFT SECOND TOE) Neurological: Sensation intact, Motor intact, Reflexes intact, Cranial nerves intact, Alert, Oriented Psychiatric: Affect appropriate, Mood appropriate Critical Care Note - Critical Care Note Total Time (mins): 0 Course - Course Orders, Labs, Meds: Orders Category Date Time Status TOE(S), LEFT MIN 2V Stat RADS 07/04/19 16:35 Ordered Vital Signs: Temp Pulse Resp BP Pulse Ox 07/04/19 16:21 97.9 F 82 18 127/80 98 Departure - Departure Time of Disposition: 17:03 Disposition: HOME SELF-CARE Discharge Problem: Bruise of toe Instructions: Hematoma (ED) Condition: Good Pt referred to PMD for follow-up: Yes IPMP verified?: No Additional Instructions: Please call your Family Physician as soon as possible to schedule a follow-up appointment. Allergies/Adverse Reactions: Allergies No Known Allergies Allergy (Verified 07/04/19 16:24) Home Medications: Ambulatory Orders Atorvastatin Calcium 20 mg PO DAILY 04/30/19 Escitalopram Oxalate [Lexapro] 20 mg PO DAILY 07/04/19
--- NOTE | 2019-07-04 17:17 | DI ---
EXAM: Three views of the left second toe HISTORY: Trauma COMPARISON: 04/26/2012 FINDINGS: No fracture or dislocation is identified. The joint spaces are maintained. No gross soft tissue abn ormality is evident. IMPRESSION: No acute osseous abnormality.
== END 2019-07-04 17:11 | disposition home or self-care (01) ==
LOC: ED 16:21
DX: S90.122A Contusion of left lesser toe(s) without damage to nail, initial encounter (principal); W22.8XXA Striking against or struck by other objects, initial encounter
CPT/HCPCS: 99283